=== PATIENT | male | born 1955 | race Caucasian/White ===

== ENCOUNTER 2017-01-11 06:21 | Outpatient (CLI) | payer OTHER ==
[~2017-01-11] VITALS: Ht 190.5 cm; Wt 112.9 kg
--- NOTE | ~2017-01-11 | CATH ---
Cardiac Diagnostic Report Demographics Patient Name REYES Ferreira Gender Male Date of 1955 Age 61 year(s) Patient Number [id number] Date of Study 01/11/2017 Visit Number [id number] Room Number G6399 [place] [id number] Ht 190.5 cm Wt 112.9 kg Referring Blank Davis Primary Physician Physician MD Performing Jeaneth Clark MD Secondary Physician Physician Diagnostic Jeaneth Clark MD Assisting Physician Physician Interventional Physician Chief Informatics Officer Physician Findings and Conclusions Diagnostic Findings and Conclusion 3 vessel CAD. 5/5 grafts patent. Diagnostic Recommendations Medical therapy. Routine post perclose. Procedure Description The patient was brought to the diagnostic cardiac catheterization-EP laboratory in the fasting, non-sedated state. Informed consent was obtained in the written and verbal form after the risks and benefits were explained. The patient had no further questions and agreed to proceed. The planned puncture-incision site(s) were shaved and prepped with ChloraPrep and draped in the usual sterile manner. Conscious sedation, supplemental oxygen, and pain control medications were delivered by a registered nurse under physician guidance. Surface ECG rhythm, blood pressure measurement, and pulse oximetry were monitored throughout the procedure. Arterial access. The access site was infiltrated with lidocaine. The vessel was entered with the Seldinger technique. A sheath was advanced into the vessel and used for catheter placement. Selective left coronary angiography. A catheter was advanced into the left coronary vessel ostium under Fluoroscopic guidance. Contrast was injected by hand. Images were obtained in multiple projections. Selective right coronary angiography. A catheter was advanced into the right coronary vessel ostium under fluoroscopic guidance. Contrast was injected by hand. Images were obtained in multiple projections. Left heart catheterization. A catheter was advanced across the aortic valve to the left ventricle under fluoroscopic guidance. Resting hemodynamics were obtained. Selective SVG to RPDA angiography. A catheter was advanced into the graft proximal anastomosis under fluoroscopic guidance. Contrast was injected by hand. Images were obtained in multiple projections. Selective SVG to Diagonal angiography. A catheter was advanced into the graft proximal anastomosis under fluoroscopic guidance. Contrast was injected by hand. Images were obtained in multiple projections. Selective SVG to OM angiography. A catheter was advanced into the graft proximal anastomosis under fluoroscopic guidance. Contrast was injected by hand. Images were obtained in multiple projections. Selective SVG to 2nd OM angiography. A catheter was advanced into the graft proximal anastomosis under fluoroscopic guidance. Contrast was injected by hand. Images were obtained in multiple projections. Selective RAMIREZ graft angiography. A catheter was advanced into the left internal mammary graft ostium under fluoroscopic guidance. Contrast was injected by hand. Images were obtained in multiple projections. Arterial artery hemostasis was achieved. The patient was transferred to a regular nursing floor via cart accompanied by a nurse. The patient left the laboratory in stable condition. Diagnostic Cath Status: Elective Procedure Procedure Type Indications: Abnormal Stress Test. The procedure was explained in detail to the patient. Risks, complications and alternative treatments were reviewed. Written consent was obtained. Medications Reviewed with Patient prior to Procedure. Angiographic Findings Dominance: Right Cardiac Arteries and Lesion Findings LMCA: Normal (0% Stenosis).medium, normal. LAD: Large. Diagonal 1 small, okay. Diagonal 2 with competitive flow. Lesion on Mid LAD: 85% stenosis .The lesion was diffuse. Lesion on 2nd Diag: Ostial.80% stenosis . LCx: Large. OM 1 small, ok. OM 2 small with competitive flow. Lesion on Mid CX: 85% stenosis . RCA: PDA medium, normal. Lesion on Prox RCA: 100% stenosis . Cardiac Grafts - There is a RAMIREZ graft that originates at the Aorta Left and attaches to the Dist LAD. - There is a Vein graft that originates at the Aorta Left and attaches to the 1st Diag (Large, normal.). - There is a Vein graft that originates at the Aorta Left and attaches to the 1st Ob Montse (Large, normal.). - There is a Vein graft that originates at the Aorta Left and attaches to the 2nd Ob Montse (Large, normal.). - There is a Vein graft that originates at the Aorta Right and attaches to the R PDA (Large, normal. ). Coronary Tree Procedure Data Procedure Date Date: 01/11/2017Start: 08:27 AMEnd: 08:49 AM Entry Locations - Retrograde Percutaneous access was performed through the Right Femoral artery (Primary location). A 6 Fr sheath was inserted. Hemostasis was successfully obtained using Perclose ProGlide (Esteban). Closure Comments: Deployed by RT. Ting. Procedure Medications Order and Administration + + +-------+------+ !Time !Medication !Dosage !Route ! + + +-------+------+ !01/11/2017 08:24 AM !Fentanyl !50 mcg !I.V. ! + + +-------+------+ !01/11/2017 08:25 AM !Versed !1 mg !I.V. ! + + +-------+------+ !01/11/2017 08:42 AM !Fentanyl !50 mcg !I.V. ! + + +-------+------+ Devices Used - A6 Fr. BS JL 4 Diag. Catheterwas used for:Left coronary angiography. - A6 Fr. BS JR 4 Diag. Catheterwas used for:Right coronary angiography. - A6 Fr. BS IMT Diag. Catheterwas used for:RAMIREZ. - A6 Fr. BS Angled Pigtail Diag. Catheterwas used for:LV Pressures. Contrast Material - Isovue 38674 ml Fluoroscopy Time: Diagnostic: 4:42 minutes. Total: 4:42 minutes. Fluoroscopy Dose: Diagnostic: 1275 mGy. Total: 1275 mGy. Estimated Blood Loss: 3 ml. Medical History Allergies - No known allergies. 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 Admission Data Admission Date: 01/11/2017 Admission Time: 06:21 AM Admit Source: Other Insurance Payors: [employer] insurance. Admission Medications + +------+------+ + + + + !Medication !Dosage!Times !Last !Last !Administered !Comments ! ! ! !Per !Delivery !Delivery ! ! ! ! ! !Day !Date !Time ! ! ! + +------+------+ + + + + !Aspirin ! ! ! ! !Yes ! ! !(any) ! ! ! ! ! ! ! + +------+------+ + + + + !Beta ! ! ! ! !Yes ! ! !Adam ! ! ! ! ! ! ! !(any) ! ! ! ! ! ! ! + +------+------+ + + + + !Statin ! ! ! ! !Yes ! ! !(any) ! ! ! ! ! ! ! + +------+------+ + + + + Clinical Evaluation Leading to Procedure - The patient's CAD presentation was assessed as: Stable angina. - The patient's anginal syndrome during the past two weeks was assessed as: Class III according to the [place] Cardi[employer] Classification System (CCS). Anti-anginal medications were prescribed during the past two weeks. The medication is: Beta Blockers. Hemodynamics Condition: Rest O2 Consumption: Estimated: 277.49Heart Rate: 63 bpm Pressures (mmHg) +-----+ + !Site !Pressure ! +-----+ + !AO !131/80 (105) ! +-----+ + !AO !121/70 (93) ! +-----+ + !LV !131/8 ,20 ! +-----+ + !LV !129/8 ,18 ! +-----+ + !AO !130/74 (97) ! +-----+ + !LV !128/8 ,18 ! +-----+ + Valve Gradients and Areas + +---------+---------+---------+ +---------+ + !Valve !Peak !Mean !Area !Index !Flow !Source ! + +---------+---------+---------+ +---------+ + !Aortic !0 !0 ! ! ! ! ! + +---------+---------+---------+ +---------+ + !Aortic !0 !0 ! ! ! ! ! + +---------+---------+---------+ +---------+ + Shunts Oxygen Values O2 Capacity 197.2 O2 Consumption 277.49 Discharge Data Discharge Date: 01/11/2017 Hospital Status: Outpatient Signatures dtt: Eduardo Eric (cardio) dtd: 01/11/17 0827 Physician Self Edit
[~2017-01-11 06:21] MED LIST: ASPIRIN EC81 MG PO; COREG 3.1253.125 MG PO; ESCITALOPRAM OX20 MG PO; LEVOTHROID (S125 MCG PO; LIPITOR20 M1 PO
== END 2017-01-11 12:20 | disposition disaster alternative care site (69) ==
LOC: GCAT 06:21 → GPCU 06:21 → GCAT 07:00
PROC: 4A023N7 Measurement of Cardiac Sampling and Pressure, Left Heart, Percutaneous Approach (ICD-10-PCS; principal; 2017-01-11)
PROC: B2131ZZ Fluoroscopy of Multiple Coronary Artery Bypass Grafts using Low Osmolar Contrast (ICD-10-PCS; principal; 2017-01-11)
DX: I25.10 Atherosclerotic heart disease of native coronary artery without angina pectoris (principal); Z95.1 Presence of aortocoronary bypass graft; I10 Essential (primary) hypertension; E03.9 Hypothyroidism, unspecified; I25.2 Old myocardial infarction
CPT/HCPCS: C1760; J1644; J1956; J2001; J2250; J3010; J7030